=== PATIENT | female | born 1985 | race Caucasian/White ===

== ENCOUNTER 2019-09-13 19:16 | Emergency (ER) | payer MEDICAID ==
[~2019-09-13] VITALS: Ht 149.9 cm; Wt 85.7 kg
[2019-09-13 19:20] VITALS: BP 139/77
[2019-09-13] MEDS ORDERED: cefTRIAXone 1,000 MG in LIDOCAINE MPF 1% 2.1 ML IM ONE (19:40)
[2019-09-13] MEDS ORDERED: LIDOCAINE MPF 1% 5 ML ONE (19:42)
[2019-09-13] MEDS ORDERED: cefTRIAXone 1,000 MG VIAL ONE (19:42)
[2019-09-13 20:00] VITALS: BP 139/77
[2019-09-13 20:32] LABS: APPEARANCE,URINE CLEAR (CLEAR); BILIRUBIN,URINE NEGATIVE (NEGATIVE); BLOOD, URINE 3+ (NEGATIVE); COLOR,URINE YELLOW (YELLOW); LEUKOCYTE ESTERASE ,URINE 1+ (NEGATIVE); NITRITE, URINE POSITIVE (NEGATIVE); UGLUCOSE 2+ (NEGATIVE)
[2019-09-13 20:42] LABS: RBC,URINE 80-100 /HPF (0-5); WBC,URINE 60-80 /HPF (0-5)
[2019-09-13 20:43] LABS: HYALINE CASTS, URINE 0-10 /LPF (None Seen)
== END 2019-09-13 20:00 | disposition home or self-care (01) ==
LOC: MED 19:16
DX: N39.0 Urinary tract infection, site not specified (principal)
CPT/HCPCS: 81001; 81025; 87086; 96372; 99283; J0696; J2001